=== PATIENT | female | born 1970 | race Caucasian/White ===

== ENCOUNTER 2024-02-28 17:24 | Emergency (ER) | payer MEDICAID ==
[~2024-02-28] VITALS: Ht 160 cm; Wt 60.0 kg
[2024-02-28 17:31] VITALS: O2SAT 93
[2024-02-28 18:33] LABS: BASOPHILS % 0.7 % (0.0-2.0); EOSINOPHILS % 0.5 % (0.0-5.0); HEMATOCRIT. 46.4 % (36.0-48.0); HEMOGLOBIN. 15.2 g/dL (12.0-16.0); LYMPHOCYTES % 51.2 % (20.0-50.0); MEAN CORPUSCULAR HEMOGLOBIN 29.9 pg (28.0-32.0); MEAN CORPUSCULAR HGB CONC 32.8 g/dL (31.0-37.0); MEAN CORPUSCULAR VOLUME 90.9 fL (81.0-99.0); MEAN PLATELET VOLUME 7.9 fl (7.4-10.4); MONOCYTES % 3.2 % (2.0-8.0); NEUTROPHILS % 44.4 % (40.0-76.0); PLATELET 236 x1000/uL (130-400); RED CELL DISTRIBUTION WIDTH 14.6 % (11.6-14.6); WHITE BLOOD COUNT 5.1 x1000/uL (4.5-11.0)
[2024-02-28 18:40] LABS: CHLORIDE 111 mEq/L (98-107); POTASSIUM 3.8 mEq/L (3.5-5.1); SODIUM 147 mEq/L (136-145)
[2024-02-28 18:41] LABS: CARBON DIOXIDE 27 mEq/L (21-32)
[2024-02-28 18:46] LABS: CREATININE 0.5 mg/dL (0.6-1.0); GLUCOSE 92 mg/dL (70-105); HCG SCREEN NEGATIVE
[2024-02-28 18:47] LABS: UREA NITROGEN BLOOD 6 mg/dL (9-23)
[2024-02-28 18:48] LABS: ALANINE AMINOTRANSFERASE 20 IU/L (10-49); ASPARTATE AMINOTRANSFERASE 28 IU/L (<34)
[2024-02-28 18:49] LABS: ALBUMIN 4.7 g/dL (3.2-4.8); BILIRUBIN TOTAL 0.3 mg/dL (0.1-1.0); PROTEIN TOTAL 7.9 g/dL (6.0-8.3)
[2024-02-29 00:10] VITALS: BP 125/67; PULSE 68; RESP 18; TEMP 36.89184; O2SAT 98
[2024-03-03] MEDS ORDERED: AMLO2.5T2 MT (11:26)
== END 2024-02-29 00:18 | disposition home or self-care (01) ==
LOC: ER 17:24
DX: F10.229 Alcohol dependence with intoxication, unspecified (principal); J45.909 Unspecified asthma, uncomplicated; Y90.9 Presence of alcohol in blood, level not specified
CPT/HCPCS: 36415; 80053; 83735; 84703; 85025; 99283

== ENCOUNTER 2024-03-02 16:47 | Emergency (ER) | payer MEDICAID ==
[~2024-03-02] VITALS: Ht 149.9 cm; Wt 65.0 kg
[2024-03-02 16:51] VITALS: BP 128/84; PULSE 94; RESP 20; TEMP 98; O2SAT 92
[2024-03-03] MEDS ORDERED: AMLO2.5T2 MT (11:26)
[2024-03-05] MEDS ORDERED: THIA100T72 MT (15:49)
== END 2024-03-02 23:49 | disposition left against medical advice (07) ==
LOC: ER 16:47
DX: R51.9 Headache, unspecified (principal); Z53.21 Procedure and treatment not carried out due to patient leaving prior to being seen by health care provider

== ENCOUNTER 2024-03-15 00:59 | Emergency (ER) | payer MEDICAID ==
[~2024-03-15] VITALS: Ht 167.6 cm; Wt 65.0 kg
[~2024-03-15 00:59] MED LIST: AMLO2.5T2 MT; THIA100T72 MT
[2024-03-15 01:02] VITALS: BP 156/99; PULSE 84; RESP 16; O2SAT 99
[2024-03-15 04:57] LABS: BASOPHILS % 1.1 % (0.0-2.0); EOSINOPHILS % 2.6 % (0.0-5.0); HEMATOCRIT. 42.9 % (36.0-48.0); HEMOGLOBIN. 14.1 g/dL (12.0-16.0); LYMPHOCYTES % 51.4 % (20.0-50.0); MEAN CORPUSCULAR HEMOGLOBIN 29.7 pg (28.0-32.0); MEAN CORPUSCULAR HGB CONC 32.9 g/dL (31.0-37.0); MEAN CORPUSCULAR VOLUME 90.3 fL (81.0-99.0); MEAN PLATELET VOLUME 7.8 fl (7.4-10.4); MONOCYTES % 4.2 % (2.0-8.0); NEUTROPHILS % 40.7 % (40.0-76.0); PLATELET 329 x1000/uL (130-400); RED BLOOD CELL COUNT 4.75 mill/uL (4.2-5.4); RED CELL DISTRIBUTION WIDTH 14.9 % (11.6-14.6); WHITE BLOOD COUNT 4.9 x1000/uL (4.5-11.0)
[2024-03-15] MEDS ORDERED: PROT20 MT (05:00)
[2024-03-15 05:05] LABS: *AMPHETAMINES SCREEN URINE NEGATIVE (NEGATIVE); *BENZODIAZEPINES SCREEN URINE PRESUMPTIVE POSITIVE (NEGATIVE)
[2024-03-15 05:06] LABS: *BARBITURATES SCREEN URINE NEGATIVE (NEGATIVE); *COCAINE SCREEN URINE NEGATIVE (NEGATIVE); CANNABINOID URINE SCREEN NEGATIVE (NEGATIVE); ECSTASY MDMA SCREEN URINE NEGATIVE (NEGATIVE); METHADONE URINE SCREEN NEGATIVE (NEGATIVE); OPIATES URINE SCREEN NEGATIVE (NEGATIVE); PHENCYCLIDINE URINE SCREEN NEGATIVE (NEGATIVE)
[2024-03-15 05:14] LABS: CLARITY URINE CLOUDY (CLEAR); COLOR URINE YELLOW (YELLOW); GLUCOSE URINE NEGATIVE (NEGATIVE); KETONES URINE NEGATIVE (NEGATIVE); LEUKOCYTE ESTERASE URINE 3+ (NEGATIVE); NITRITE URINE POSITIVE (NEGATIVE); OCCULT BLOOD URINE TRACE (NEGATIVE); PROTEIN URINE TRACE (NEGATIVE); SPECIFIC GRAVITY URINE 1.008 (1.005-1.030); UROBILINOGEN URINE 0.2 E.U./dL (0.2-1.0)
[2024-03-15 05:35] LABS: SODIUM 148 mEq/L (136-145)
[2024-03-15 05:36] LABS: CARBON DIOXIDE 28 mEq/L (21-32); CHLORIDE 111 mEq/L (98-107); GLUCOSE 93 mg/dL (70-105); POTASSIUM 3.6 mEq/L (3.5-5.1); UREA NITROGEN BLOOD 6 mg/dL (9-23)
[2024-03-15 05:42] LABS: CALCIUM 8.7 mg/dL (8.7-10.4); ETHANOL BLOOD 466 mg/dL (<10)
[2024-03-15 06:21] LABS: CREATININE 0.5 mg/dL (0.6-1.0)
[2024-03-15 06:55] LABS: BACTERIA URINE 3+; SQUAMOUS EPITHELIAL CELL URINE 1+ /lpf (RARE/1+); WBC URINE TNTC /hpf (0-2)
== END 2024-03-15 05:57 | disposition home or self-care (01) ==
LOC: ER 00:59
DX: F10.229 Alcohol dependence with intoxication, unspecified (principal); I49.9 Cardiac arrhythmia, unspecified; Y90.8 Blood alcohol level of 240 mg/100 ml or more
CPT/HCPCS: 36415; 80048; 80305; 80320; 81003; 85025; 87077; 87186; 93005; 99284; G0480